=== PATIENT | female | born 1965 | race Caucasian/White ===

== ENCOUNTER → 2017-02-08 | Outpatient (CLI) | payer BC ==
--- NOTE | 2017-02-09 10:42 | MM ---
Reason for exam: screening (asymptomatic). Last mammogram was performed 1 year ago. History: Patient is postmenopausal and had first child at age 37. Family history of breast cancer in grandmother. Physical Findings: A clinical breast exam by your physician is recommended on an annual basis and results should be correlated with mammographic findings. MG Screening Mammo w CAD Bilateral CC and MLO view(s) were taken. Prior study comparison: February 08, 2016, bilateral MG screening mammo w CAD. March 13, 2014, bilateral MG screening mammo w CAD. There are scattered fibroglandular densities. No suspicious abnormality. No significant changes when compared with prior studies. ASSESSMENT: Negative, BI-RAD 1 RECOMMENDATION: Routine screening mammogram of both breasts in 1 year.
== END | disposition home or self-care (01) ==
LOC: RADMAMWWP 07:54
PROVIDERS: ATTEND Family Medicine
DX: Z12.31 Encounter for screening mammogram for malignant neoplasm of breast (principal)

== ENCOUNTER → 2018-07-13 | Outpatient (CLI) | payer BC ==
--- NOTE | 2018-07-16 14:00 | MM ---
Reason for exam: screening (asymptomatic). Last mammogram was performed 1 year and 5 months ago. History: Patient is postmenopausal and had first child at age 37. Family history of breast cancer in grandmother. Physical Findings: A clinical breast exam by your physician is recommended on an annual basis and results should be correlated with mammographic findings. MG 3D Screening Mammo W/Cad Bilateral CC and MLO view(s) were taken. Prior study comparison: February 08, 2017, bilateral MG screening mammo w CAD. February 08, 2016, bilateral MG screening mammo w CAD. There are scattered fibroglandular densities. No significant changes when compared with prior studies. ASSESSMENT: Benign, BI-RAD 2 RECOMMENDATION: Routine screening mammogram of both breasts in 1 year.
== END | disposition home or self-care (01) ==
LOC: RADMAMWWP 13:32
PROVIDERS: ATTEND Obstetrics & Gynecology
DX: Z12.31 Encounter for screening mammogram for malignant neoplasm of breast (principal)
CPT/HCPCS: 77063; 77067

== ENCOUNTER → 2018-10-03 | Outpatient (CLI) | payer BC ==
--- NOTE | 2018-10-03 11:57 | BD ---
EXAMINATION TYPE: Axial Bone Density DATE OF EXAM: 10/03/2018 COMPARISON: 04.27.2016 CLINICAL HISTORY: Disorder of bone, osteopenia Height: 60.5 Weight: 181.8 FRAX RISK QUESTIONS: Alcohol (3 or more units per day): no Family History (Parent hip fracture): no Glucocorticoids (More than 3mos): no (Ex: prednisone, prednisolone, methylprednisolone, dexamethasone, and hydrocortisone). History of Fracture in Adulthood: no Secondary Osteoporosis: 1. Type 1 Diabetes: no 2. Hyperthyroidism: no 3. Menopause before 45: yes 4. Malnutrition: no 5. Chronic liver disease: no Rheumatoid Arthritis: no Current Tobacco Use: no RISK FACTORS HISTORY OF: Family History of Osteoporosis: yes Active: yes Diet low in dairy products/other sources of calcium: yes Postmenopausal woman: age 38 Lost more than 2 inches in height since high school: no MEDICATIONS: blood pressure med, vit d Additional History: EXAM MEASUREMENTS: Bone mineral densitometry was performed using the American Board [employer] Addiction Medicine (ABAM) System. Bone mineral density as measured about the Lumbar spine is: ----- L1-L4(G/cm2): 1.010 T Score Values are as follows: ----- L2: -1.9 ----- L3: -1.4 ----- L4: -1.8 ----- L1-L4: -1.4 Bone mineral density has: increased 0.9 % since study of: 04.27.2016 Bone mineral density about the R hip (g/cm2): 0.742 Bone mineral density about the L hip (g/cm2): 0.754 T Score values are as follows: -----R Neck: -2.1 -----L Neck: -1.2 -----R Total: -2.0 -----L Total: -1.4 Bone mineral density has: increased 0.7 % since study of: 04.27.2016 IMPRESSION: Osteopenia (T Score between -2.5 and -1). There is slightly increased risk of fracture and the patient may be considered for treatment. Re-Screen 2-5 years. NOTE: T-SCORE=SD OF THE YOUNG ADULT MEAN.
== END | disposition home or self-care (01) ==
LOC: RADBDWWP 08:36
PROVIDERS: ATTEND Obstetrics & Gynecology
DX: M85.80 Other specified disorders of bone density and structure, unspecified site (principal)
CPT/HCPCS: 77080

== ENCOUNTER → 2019-05-02 | Outpatient (CLI) | payer BC ==
--- NOTE | 2019-05-02 16:04 | XR ---
Left knee and left fibula HISTORY: Left knee pain, left leg pain 3 views of the left knee and 2 views of the left leg Suprapatellar increased density is compatible joint effusion. Bone mineralization is reduced. There i s no evident fracture or dislocation. Alignment is maintained. Joint space loss is present especially in the medial compartment, there is marginal spurring tricompartmentally. IMPRESSION: Osteoarthritis, osteopenia, knee joint effusion
== END | disposition home or self-care (01) ==
LOC: RADXRYALE 14:10
PROVIDERS: ATTEND Physician Assistant
DX: M17.12 Unilateral primary osteoarthritis, left knee (principal); M85.80 Other specified disorders of bone density and structure, unspecified site

== ENCOUNTER 2020-04-14 09:07 | Day surgery (SDC) | payer BC ==
[2020-04-09 16:13] VITALS: BMI 34.0
[~2020-04-14 09:07] MED LIST: LACTATED RINGERS 1,000 ML IV SCH; LIDOCAINE 1% (10MG/ML) FOR IV START INTRADERMA PRN
[2020-04-14 09:44] VITALS: RESP 16; TEMP 97.1
[2020-04-14] MEDS ORDERED: PROPOFOL 10 MG/ML 20 ML VIAL IV ONE (10:21)
[2020-04-14] MEDS ORDERED: LIDOCAINE 1% INJ 10MG/ML (20 ML MDV) ONE (10:21)
--- NOTE | 2020-04-14 10:57 | P.PCN ---
Date of Procedure: 04/14/20 Description of Procedure: BRIEF HISTORY: Patient is a 55-year-old female presenting for outpatient colonoscopy for family history of colon cancer. She reports last colonoscopy 6 years ago. She does report a family history of colon cancer in her mother. No change in bowel habits or blood per rectum. PROCEDURE PERFORMED: Colonoscopy with polypectomy. PREOPERATIVE DIAGNOSIS: .Family history of colon cancer, patient reports last colonoscopy 6 years ago ESTIMATED BLOOD LOSS: Minimal. IV sedation per Anesthesia. PROCEDURE: After informed consent was obtained, the patient, was brought into the endoscopy unit. IV sedation was administered by Anesthesia under continuous monitoring. D igital rectal examination was normal. Initially the Olympus CF-190 flexible video colonoscope was then inserted in the rectum, gradually advanced into the cecum without any difficulty. Careful examination was performed as the scope was gradually being withdrawn. Ileocecal valve and the appendiceal orifice were visualized and appeared normal. Prep was excellent. Mucosa of the cecum, ascending colon, transverse colon, descending colon, sigmoid colon, and rectum appeared normal. Pedunculated 9 mm transverse colon polyp removed with hot snare polypectomy. 6 mm ascending colon polyp removed with cold snare polypectomy. 4 mm rectal polyp just proximal to the anal verge removed with hot snare polypectomy. A few scattered diverticula noted throughout the colon. Retroflexion was performed in the rectum and no lesions were seen. The patient tolerated the procedure well. IMPRESSION: Pedunculated transverse colon polyp removed with hot snare polypectomy. Small ascending colon polyp removed with cold snare polypectomy. Small rectal polyp removed with hot snare polypectomy. Mild pandiverticulosis. RECOMMENDATIONS: Findings of this examination were discussed with the patient and her family. Okay to resume diet. Okay to resume medications. Await pathology from polypectomies. Recommend repeat colonoscopy in 5 years for family history of colon cancer status post partial history of colon polyps pending pathology from polypectomies.
[2020-04-14 11:28] VITALS: BP 142/78; PULSE 77
== END 2020-04-14 12:00 | disposition home or self-care (01) ==
LOC: ORWHC2ENDO 09:07
PROVIDERS: ATTEND Internal Medicine
DX: Z12.11 Encounter for screening for malignant neoplasm of colon (principal); D12.3 Benign neoplasm of transverse colon; D12.2 Benign neoplasm of ascending colon; D37.5 Neoplasm of uncertain behavior of rectum; K57.30 Diverticulosis of large intestine without perforation or abscess without bleeding; E78.5 Hyperlipidemia, unspecified; Z80.0 Family history of malignant neoplasm of digestive organs; Z98.42 Cataract extraction status, left eye; Z98.41 Cataract extraction status, right eye; Z98.890 Other specified postprocedural states; Z79.899 Other long term (current) drug therapy
CPT/HCPCS: 88305; 45385; J2001; J2704

== ENCOUNTER → 2021-01-18 | Outpatient (CLI) | payer BC ==
--- NOTE | 2021-01-20 11:27 | MM ---
Reason for exam: screening (asymptomatic). Last mammogram was performed 2 years and 6 months ago. History: Patient is postmenopausal and had first child at age 37. Family history of breast cancer in grandmother. Took hormonal contraceptives for 6 months. Physical Findings: A clinical breast exam by your physician is recommended on an annual basis and results should be correlated with mammographic findings. MG Screening Mammo w CAD Bilateral CC and MLO view(s) were taken. Prior study comparison: July 13, 2018, bilateral MG 3d screening mammo w/cad. February 08, 2017, bilateral MG screening mammo w CAD. No significant changes when compared with prior studies. ASSESSMENT: Benign, BI-RAD 2 RECOMMENDATION: Routine screening mammogram of both breasts in 1 year.
== END | disposition home or self-care (01) ==
LOC: RADMAMWWP 15:16
PROVIDERS: ATTEND Obstetrics & Gynecology
DX: Z12.31 Encounter for screening mammogram for malignant neoplasm of breast (principal); Z78.0 Asymptomatic menopausal state; Z80.3 Family history of malignant neoplasm of breast
CPT/HCPCS: 77067

== ENCOUNTER → 2021-12-16 | Outpatient (CLI) | payer BC ==
--- NOTE | 2021-12-16 11:27 | US ---
EXAMINATION TYPE: US abdomen complete DATE OF EXAM: 12/16/2021 COMPARISON: NONE CLINICAL HISTORY: 56-year-old female R10.30 LOW ABD PAIN; R39.15 R82.90. Left flank pain. Technique: Multiple sonographic images of the abdomen are obtained. FINDINGS: EXAM MEASUREMENTS: Liver Length: 17.3 cm Gallbladder Wall: 0.5 cm CBD: 1.0 cm Spleen: 11.2 cm Right Kidney: 11.2 x 5.0 x 5.2 cm Left Kidney: 11.2 x 3.8 x 5.7 cm Pancreas: wnl Liver: wnl Gallbladder: wnl Evidence for sonographic Aranda's sign: no CBD: Dilated. No visualized intraluminal filling defect. Spleen: wnl Right Kidney: wnl Left Kidney: multiple shadowing stones seen, largest may measure up to 3.1 cm at the level of the re nal pelvis. Suggestion of mild caliectasis. Upper IVC: wnl Abd Aorta: wnl IMPRESSION: 1. Dilated bile duct up to 1 cm. Correlate with alkaline phosphatase and bilirubin levels to exclude early biliary obstruction. 2. Left-sided renal calculi. Largest may measure up to 3.1 cm at the level of the renal pelvis. Some degree of mild obstructive uropathy is difficult to exclude.
--- NOTE | 2021-12-16 11:38 | US ---
EXAMINATION TYPE: US pelvic complete DATE OF EXAM: 12/16/2021 COMPARISON: NONE CLINICAL HISTORY: 56-year-old female R10.30 LOW ABD PAIN; R39.15 R82.90. Increased in urination and h ematuria TECHNIQUE: Transabdominal sonographic images of the pelvis were acquired Date of LMP: 17 yrs ago FINDINGS: EXAM MEASUREMENTS: Uterus: 6.2 x 4.1 x 2.5 cm Endometrial Stripe: 0.4 cm Right Ovary: 1.6 x 1.3 x 1.5 cm Left Ovary: not seen 1. Uterus: Anteverted and otherwise wnl 2. Endometrium: wnl 3. Right Ovary: wnl 4. Left Ovary: not seen 5. Bilateral Adnexa: wnl 6. Posterior cul-de-sac: wnl IMPRESSION: Unable to visualize the left ovary. Otherwise, unremarkable transabdominal examination of the pelvis.
== END | disposition home or self-care (01) ==
LOC: RADUSWWP 07:24
PROVIDERS: ATTEND Family Medicine
DX: K83.8 Other specified diseases of biliary tract (principal); N20.0 Calculus of kidney; R39.15 Urgency of urination; R82.90 Unspecified abnormal findings in urine
CPT/HCPCS: 76700; 76856

== ENCOUNTER → 2022-01-19 | Outpatient (CLI) | payer BC ==
--- NOTE | 2022-01-20 07:25 | MM ---
Reason for Exam: Screening (asymptomatic). Last screening mammogram was performed 12 month(s) ago. Patient History: Menarche at age 11. First Full-Term at age 37. Late child-bearing (after 30). Postmenopausal. Patient has history of breast feeding. Hormonal Contraceptives for 6 months. Maternal grandmother had breast cancer at or over age 50. Risk Values: Bekah 5 year model risk: 1.8%. NCI Lifetime model risk: 10.5%. Prior Study Comparison: 03/13/2014 Bilateral Screening Mammogram, [facility]. 02/08/2016 Bilateral Screening Mammogram, [facility]. 02/08/2017 Bilateral Screening Mammogram, [facility]. 07/13/2018 Bilateral Screening Mammogram, [facility]. 01/18/2021 Bilateral Screening Mammogram, [facility]. Tissue Density: There are scattered fibroglandular densities. Findings: Analyzed By CAD. Benign-appearing bilateral axillary lymph nodes redemonstrated. There is no suspicious new group of microcalcifications or new suspicious mass in either breast. Overall Assessment: Negative, BI-RAD 1 Management: Screening Mammogram of both breasts in 1 year. A clinical breast exam by your physician is recommended on an annual basis and results should be correlated with mammographic findings. Electronically signed and approved by: Aftab Hunt M.D.
== END | disposition home or self-care (01) ==
LOC: RADMAMWWP 08:17
PROVIDERS: ATTEND Family Medicine
DX: Z12.31 Encounter for screening mammogram for malignant neoplasm of breast (principal); Z78.0 Asymptomatic menopausal state; Z80.3 Family history of malignant neoplasm of breast
CPT/HCPCS: 77063; 77067

== ENCOUNTER → 2022-01-20 | Outpatient (CLI) | payer BC ==
--- NOTE | 2022-01-20 17:42 | CT ---
EXAMINATION TYPE: CT abdomen pelvis wo con CT DLP: 1029 mGycm, Automated exposure control for dose reduction was used. DATE OF EXAM: 01/20/2022 5:07 PM COMPARISON: None CLINICAL INDICATION:Female, 56 years old with history of R31.1 HEMATURIA; Left flank pain TECHNIQUE: Axial CT of the abdomen and pelvis. Sagittal and coronal reformats were created on a [employer] workstation. Contrast used: None Oral contrast used: without Oral Contrast FINDINGS: LOWER CHEST: Unremarkable ABDOMEN LIVER: Unremarkable GALLBLADDER AND BILE DUCTS: Unremarkable. PANCREAS: Unremarkable. SPLEEN: Unremarkable. ADRENAL GLANDS: Unremarkable. KIDNEYS AND URETERS: No evidence of right-sided hydronephrosis or renal calculus. The left kidney demonstrates large calculus in the renal pelvis resulting in mild hydronephrosis. Robert al pelvis large calculus measures up to 19 mm. Additional calculi also present in the calyces/pelvis which may be obstructing. PELVIS BLADDER: Unremarkable REPRODUCTIVE: Unremarkable. ABDOMEN & PELVIS STOMACH AND BOWEL: No evidence of bowel obstruction. Scattered clonic diverticula are present in the sigmoid colon. PERITONEUM: No evidence of pneumoperitoneum or free fluid. VASCULATURE: No evidence of aortic aneurysm. MUSCULOSKELETAL: No acute osseous abnormalities, mild multilevel disc degeneration changes. LYMPH NODES: No gross evidence for lymphadenopathy. SOFT TISSUE/ABDOMINAL WALL: Unremarkable IMPRESSION: 1. Mild left hydronephrosis secondary obstructing 19 mm calculus in the left renal pelvis. 2. Colonic diverticulosis.
== END | disposition home or self-care (01) ==
LOC: RADCTMAIN 16:45
PROVIDERS: ATTEND Urology
DX: N13.2 Hydronephrosis with renal and ureteral calculous obstruction (principal); K57.30 Diverticulosis of large intestine without perforation or abscess without bleeding
CPT/HCPCS: 74176

== ENCOUNTER → 2022-02-14 | Outpatient (CLI) | payer BC ==
--- NOTE | 2022-02-14 17:11 | BD ---
EXAMINATION TYPE: Axial Bone Density DATE OF EXAM: 02/14/2022 COMPARISON: 10.03.2018 STUDY UNAVAILABLE, TRENDED TO 04.27.2016 STUDY CLINICAL HISTORY: 56 years year old Female. ICD-10 CODE: Z78.0 POST MENOPAUSAL M85.88 Osteopenia Height: 59.5 Weight: 181 FRAX RISK QUESTIONS: Secondary Osteoporosis: YES 3. Menopause before 45: YES RISK FACTORS HISTORY OF: Active: YES Postmenopausal woman: YES, AT 38 YRS OLD Hyperparathyroidism: NO Adrenal Insufficiency: NO MEDICATIONS: Additional Medications: BP MEDS, VIT D, STATIN FOR CHOLESTEROL, MULTIVITAMIN WITH CALCIUM Additional History: HYPERTENSION, CHOLESTEROL, EXAM MEASUREMENTS: Bone mineral densitometry was performed using the [employer] System. Bone mineral density as measured about the Lumbar spine is: ----- L1-L4(G/cm2): 1.003 T Score Values are as follows: ----- L1: -0.7 ----- L2: -2.0 ----- L3: -1.5 ----- L4: -1.7 ----- L1-L4: -1.5 Bone mineral density has: Increased 0.4% SINCE: 04.27.2016 Bone mineral density about the R hip (g/cm2): 0.784 Bone mineral density about the L hip (g/cm2): 0.772 T Score values are as follows: -----R Neck: -2.5 -----L Neck: -2.4 -----R Total: -1.8 -----L Total: -1.9 Bone mineral density has: Decreased -7.2% SINCE: 04.27.2016 FRAX%s: The graph provided illustrates a 10.4%nce for a major osteoporotic fx and a 1.9%ance for the hips probability for fx in 10 years time. IMPRESSION: Osteoporosis (T Score less than -2.5). There is increased fracture risk and therapy is usually indicated based on age. Re-Screen 1-2 years. NOTE: T-SCORE=SD OF THE YOUNG ADULT MEAN.
== END | disposition home or self-care (01) ==
LOC: RADBDWWP 07:47
PROVIDERS: ATTEND Obstetrics & Gynecology
DX: M81.0 Age-related osteoporosis without current pathological fracture (principal)
CPT/HCPCS: 77080

== ENCOUNTER 2022-02-19 09:47 | Emergency (ER) | payer BC ==
[2022-02-19 09:52] VITALS: TEMP 97.6
[2022-02-19] MEDS ORDERED: diphenhydrAMINE 50 MG/ML 1 ML VIAL IVP STA (10:08)
[2022-02-19] MEDS ORDERED: SODIUM CHLORIDE 0.9% 1,000 ML IV ONE (10:08)
[2022-02-19] MEDS ORDERED: ACETAMINOPHEN TAB 500 MG TAB PO STA (10:08)
[2022-02-19] MEDS ORDERED: METOCLOPRAMIDE 5 MG/ML 2 ML VIAL IVP STA (10:08)
--- NOTE | 2022-02-19 10:17 | ED ---
General Adult HPI - General Chief complaint: Headache Stated complaint: Headache/Neck Pain Time Seen by Provider: 02/19/22 09:50 Source: patient, RN notes reviewed, old records reviewed Mode of arrival: ambulatory Limitations: no limitations - History of Present Illness Initial comments: 48-year-old female presenting for evaluation of headache or patient has had a headache for the past several days. This was gradual in onset and has been constant. She was started seen at urgent care and sent to the emergency department for evaluation. She denies photophobia. Denies fever. She states the headache is throughout her entire head starting in her neck and moving across the entire frontal region. Patient states this is worse with movement. She denies any injury. She states she does have previous headache history but states this is more severe in nature. No focal numbness or weakness. - Related Data Home Medications Medication Instructions Recorded Confirmed Atorvastatin Calcium [Lipitor] 40 mg PO HS 04/09/20 04/09/20 Cholecalciferol [Vitamin D3 (25 5,000 unit PO HS 04/09/20 04/09/20 Mcg = 1000 Iu)] Cyanocobalamin (Vitamin B-12) 2,500 mcg PO HS 04/09/20 04/09/20 [Vitamin B-12] Multivitamins, Thera [Multivitamin 2 tab PO HS 04/09/20 04/09/20 (formulary)] Vitamin C/Biotin [Hair, Skin and 1 tab PO HS 04/09/20 04/09/20 Nails] Allergies Allergy/AdvReac Type Severity Reaction Status Date / Time No Known Allergies Allergy Verified 02/19/22 09:52 Review of Systems ROS Statement: Those systems with pertinent positive or pertinent negative responses have been documented in the HPI. ROS Other: All systems not noted in ROS Statement are negative. Past Medical History Past Medical History: Hyperlipidemia Additional Past Medical History / Comment(s): feet picky all the time, Neuropathy History of Any Multi-Drug Resistant Organisms: None Reported Additional Past Surgical History / Comment(s): 2000 LAPAROSCOPIC. EYE SURGERY- CATARACT ANATOLY. EYES WITH SPECIAL LENS INSERTED TO IMPROVE VISION Past Anesthesia/Blood Transfusion Reactions: No Reported Reaction Past Psychological History: Anxiety Smoking Status: Never smoker Past Alcohol Use History: None Reported Past Drug Use History: None Reported - Past Family History Mother Family Medical History: Cancer Additional Family Medical History / Comment(s): colon cancer General Exam Limitations: no limitations General appearance: alert, in no apparent distress Head exam: Present: atraumatic, normocephalic Eye exam: Present: normal appearance, PERRL ENT exam: Present: normal exam Neck exam: Present: normal inspection, tenderness, other (Bilateral paraspinal and trapezius spasm) Respiratory exam: Present: normal lung sounds bilaterally. Absent: respiratory distress, wheezes Cardiovascular Exam: Present: regular rate, normal rhythm GI/Abdominal exam: Present: soft. Absent: distended, tenderness Extremities exam: Present: normal inspection, normal capillary refill. Absent: pedal edema Neurological exam: Present: alert, oriented X3, CN II-XII intact. Absent: motor sensory deficit Psychiatric exam: Present: normal affect, normal mood Skin exam: Present: warm, dry, intact. Absent: cyanosis, diaphoretic Course Vital Signs 02/19/22 02/19/22 09:50 12:40 Temperature 97.6 F Pulse Rate 64 90 Respiratory 20 18 Rate Blood Pressure 166/82 148/91 O2 Sat by Pulse 99 99 Oximetry Medical Decision Making - Medical Decision Making 56-year-old female presenting for evaluation of headache, gradual headache. Patient well-appearing with a nonfocal neurologic exam, no ataxia. She was sent for imaging. Given the duration of symptoms I did perform both CT of the brain without contrast and CT angiography. These are both negative. Patient had relatively normal laboratory testing with a mild leukocytosis of uncertain etiol ogy. She was feeling somewhat better after medication. Headache not completely resolved but patient was able to get some rest. She will follow-up with her primary care physician and her neurologist. - Lab Data Result diagrams: 02/19/22 10:24 02/19/22 10:24 Lab Results 02/19/22 02/19/22 02/19/22 Range/Units 10:24 10: 10:24 WBC 12.5 H (3.8-10.6) k/uL RBC 4.50 (3.80-5.40) m/uL Hgb 13.5 (11.4-16.0) gm/dL Hct 40.5 (34.0-46.0) % MCV 90.1 (80.0-100.0) fL MCH 30.0 (25.0-35.0) pg MCHC 33.3 (31.0-37.0) g/dL RDW 12.4 (11.5-15.5) % Plt Count 230 (150-450) k/uL MPV 9.0 Neutrophils % 66 % Lymphocytes % 23 % Monocytes % 6 % Eosinophils % 2 % Basophils % 0 % Neutrophils # 8.2 H (1.3-7.7) k/uL Lymphocytes # 2.9 (1.0-4.8) k/uL Monocytes # 0.8 (0-1.0) k/uL Eosinophils # 0.3 (0-0.7) k/uL Basophils # 0.1 (0-0.2) k/uL PT 10.5 (9.0-12.0) sec INR 1.0 (<1.2) APTT 23.3 (22.0-30.0) sec Sodium 138 (137-145) mmol/L Potassium 4.7 (3.5-5.1) mmol/L Chloride 101 (98-107) mmol/L Carbon Dioxide 25 (22-30) mmol/L Anion Gap 12 mmol/L BUN 18 H (7-17) mg/dL Creatinine 0.75 (0.52-1.04) mg/dL Est GFR (CKD-EPI)AfAm >90 (>60 ml/min/1.73 sqM) Est GFR (CKD-EPI)NonAf 88 (>60 ml/min/1.73 sqM) Glucose 102 H (74-99) mg/dL Calcium 9.6 (8.4-10.2) mg/dL Total Bilirubin 0.6 (0.2-1.3) mg/dL AST 20 (14-36) U/L ALT 22 (4-34) U/L Alkaline Phosphatase 124 (38-126) U/L Total Protein 7.9 (6.3-8.2) g/dL Albumin 4.7 (3.5-5.0) g/dL Disposition Clinical Impression: Headache Disposition: HOME SELF-CARE Condition: Good Instructions (If sedation given, give patient instructions): Acute Headache (ED) Additional Instructions: Please follow up with her neurologist, return with worsening or changing symptoms. Is patient prescribed a controlled substance at d/c from ED?: No Referrals: Pancho Mai DO [Primary Care Provider] - 1-2 days Time of Disposition: 13:13
[2022-02-19 11:11] LABS: Basophils # (A) 0.1 k/uL (0-0.2); Basophils % (A) 0 %; Eosinophils # (A) 0.3 k/uL (0-0.7); Eosinophils % (A) 2 %; HCT 40.5 % (34.0-46.0); HGB 13.5 gm/dL (11.4-16.0); Lymphocytes # (A) 2.9 k/uL (1.0-4.8); Lymphocytes % (A) 23 %; MCHC 33.3 g/dL (31.0-37.0); MCV 90.1 fL (80.0-100.0); Monocytes # (A) 0.8 k/uL (0-1.0); Monocytes % (A) 6 %; Neutrophils # (A) 8.2 k/uL (1.3-7.7); Neutrophils % (A) 66 %; Platelet Count 230 k/uL (150-450); RDW 12.4 % (11.5-15.5); WBC 12.5 k/uL (3.8-10.6)
[2022-02-19 11:24] LABS: ALT 22 U/L (4-34); AST 20 U/L (14-36); African American GFR (CKD) >90 (>60 ml/min/1.73 sqM); Albumin 4.7 g/dL (3.5-5.0); Alkaline Phosphatase 124 U/L (38-126); Anion Gap 12 mmol/L; Blood Urea Nitrogen 18 mg/dL (7-17); Calcium 9.6 mg/dL (8.4-10.2); Carbon Dioxide 25 mmol/L (22-30); Chloride 101 mmol/L (98-107); Glucose 102 mg/dL (74-99); Non-African American GFR(CKD) 88 (>60 ml/min/1.73 sqM); Potassium 4.7 mmol/L (3.5-5.1); Sodium 138 mmol/L (137-145); Total Bilirubin 0.6 mg/dL (0.2-1.3); Total Protein 7.9 g/dL (6.3-8.2)
[2022-02-19 11:32] LABS: Partial Thromboplastin Time 23.3 sec (22.0-30.0); Prothrombin Time 10.5 sec (9.0-12.0)
[2022-02-19 12:40] VITALS: RESP 18
--- NOTE | 2022-02-19 12:42 | CT ---
EXAMINATION TYPE: CT brain cspine wo con CT DLP: 1364.6 mGycm, Automated exposure control for dose reduction was used. DATE OF EXAM: 02/19/2022 12:28 PM COMPARISON: None.. CLINICAL INDICATION:Female, 56 years old with history of severe MIRANDA; Headache/neck pain TECHNIQUE: Brain: Multiple axial CT images of the brain were obtained without IV contrast. Cspine: Axial CT images from the skull base to the inferior aspect of T2 we obtained without intraven ous contrast. Coronal and sagittal reformatted images were also reviewed. FINDINGS: Brain: Extra-axial spaces: No abnormal extra-axial fluid collections. Ventricular system: Within normal limits Cerebral parenchyma: No acute intraparenchymal hemorrhage or mass effect. The ventura-white junction is well differentiated. Cerebellum: Unremarkable. Mass effect: No evidence of midline shift. Intracranial vasculature: unremarkable Soft tissues: Normal. Calvarium/osseous structures: No depressed skull fracture. Paranasal sinuses and mastoid air cells: Clear. Visualized orbits: Bilaterally aphakia Cervical spine: Fracture: None. Osseous structures: Multilevel degenerative disc disease changes with endplate spurring and disc oste ophyte complex's. Vertebral alignment: Within normal limits. Spinal canal/Neural Foramina: No evidence of significant spinal canal narrowing. No evidence for sign ificant neural foraminal stenosis. Neck soft tissues: Prevertebral soft tissues are within normal limits. Other: The airway is patent. The lung apices are clear. IMPRESSION: 1. No acute intracranial process 2. No evidence of cervical spine fracture. 3. Mild multilevel degenerative disc disease.
--- NOTE | 2022-02-19 13:01 | CT ---
EXAMINATION TYPE: CT angio head neck CT DLP: 583.2 mGycm, Automated exposure control for dose reduction was used. DATE OF EXAM: 02/19/2022 12:29 PM COMPARISON: 02/19/2022. CLINICAL INDICATION:Female, 56 years old with history of Severe MIRANDA, Headache/neck pain TECHNIQUE: Axially acquired helical CT angiogram of the head and neck was obtained with contrast. Axi al images are supplemented with 3D reconstructions which were [facility] NASCET criteria used. Contrast used:65 mL of Isovue 370 with IV Contrast, Oral contrast used: None. FINDINGS: CTA HEAD: No evidence of acute intracranial hemorrhage, mass effect, or midline shift. The ventricles, sulci, a nd cisterns are unremarkable. The visualized portions of the internal carotid arteries, middle cerebral arteries, anterior cerebral arteries, and posterior cerebral arteries are patent. The basilar and vertebral arteries are patent. CTA NECK: Right Carotid System: The common carotid artery and external carotid artery are patent. The carotid bifurcation demonstrate s no evidence of hemodynamically significant stenosis. The remaining portions of the internal carotid artery demonstrate normal size without significant narrowing. Left Carotid System: The common carotid artery and external carotid artery are patent. The carotid bifurcation demonstrate s no evidence of hemodynamically significant stenosis. The remaining portions of the internal carotid artery demonstrate normal size without significant narrowing. Vertebral arteries are patent without evidence hemodynamically significant stenosis. There is a three-vessel aortic arch. The origins of the great vessels are patent. No evidence of hemo dynamically significant stenosis. IMPRESSION: 1. No evidence of dissection of the cervical internal carotid arteries or vertebral arteries or any e vidence of significant stenosis at the carotid bifurcations. 2. No evidence of intracranial high-grade stenosis or intracranial aneurysm.
[2022-02-19] MEDS ORDERED: KETOROLAC 15 MG/ML 1 ML VIAL IVP STA (13:11)
[2022-02-19 13:55] VITALS: BP 148/89; PULSE 92
== END 2022-02-19 14:03 | disposition home or self-care (01) ==
LOC: EC 09:47
DX: R51.9 Headache, unspecified (principal); E78.5 Hyperlipidemia, unspecified; Z79.899 Other long term (current) drug therapy
CPT/HCPCS: 96361 ×2; 96374 ×2; 96375 ×2; 99284 ×2; 36415; 80053; 85025; 85610; 85730; 72125; 70496; 70450; 70498; J1200; J2765; J3360; J1885; Q9967

== ENCOUNTER → 2022-02-21 | Outpatient (CLI) | payer BC ==
[2022-02-21 18:18] LABS: African American GFR (CKD) 94.2 (60.0-200.0); Albumin 4.5 g/dL (3.8-4.9); Albumin/Globulin Ratio 1.32 (1.60-3.17); Anion Gap 9.6 mmol/L (10.00-18.00); BUN/Creat Ratio 17.13 Ratio (12.00-20.00); Blood Urea Nitrogen 13.7 mg/dL (9.0-27.0); Calcium 9.7 mg/dL (8.7-10.3); Carbon Dioxide 25.4 mmol/L (20.0-27.5); Globulin 3.4 g/dL (1.6-3.3); Non-African American GFR(CKD) 81.3 (60.0-200.0); Potassium 4.5 mmol/L (3.5-5.5); Total Bilirubin 0.3 mg/dL (0.30-1.20); Total Protein 7.9 g/dL (6.2-8.2)
[2022-02-21 18:22] LABS: Basophils # (A) 0.07 X 10*3/uL (0.00-0.10); Basophils % (A) 0.6 %; Eosinophils # (A) 0.29 X 10*3/uL (0.04-0.35); Eosinophils % (A) 2.6 %; HCT 39.4 % (37.2-46.3); HGB 12.8 g/dL (12.0-15.0); Immature Grans, Automated 0.4 %; Lymphocytes # (A) 3.11 X 10*3/uL (0.90-5.00); Lymphocytes % (A) 27.8 %; MCH 30.3 pg (27.0-32.0); MCHC 32.5 g/dL (32.0-37.0); MCV 93.1 fL (80.0-97.0); Mean Platelet Volume 12.3 fL (9.5-12.2); Monocytes # (A) 0.95 X 10*3/uL (0.20-1.00); Monocytes % (A) 8.5 %; NRBC Per 100 WBC 0 /100 WBCS (0.0-0.0); Neutrophils # (A) 6.72 X 10*3/uL (1.80-7.70); Neutrophils % (A) 60.1 %; Platelet Count 255 X 10*3/uL (140-440); RBC 4.23 X 10*6/uL (4.10-5.20); RDW 12.7 % (11.5-14.5); WBC 11.19 X 10*3/uL (4.50-10.00)
[2022-02-21 18:27] LABS: Appearance,Urine Clear (Clear); Bilirubin,Urine Negative (Negative); Blood,Urine Trace (Negative); Color,Urine Yellow (Yellow); Ketones,Urine Negative (Negative); Nitrite,Urine Negative (Negative); PH, Urine 5.5 (5.0-8.0); Specific Gravity,Urine 1.015 (1.001-1.030); Urobilinogen,Urine 0.2 (0.2,1.0)
[2022-02-21 18:36] LABS: Bacteria,Urine None Seen /HPF (None Seen)
== END | disposition home or self-care (01) ==
LOC: LABPAT 10:32
PROVIDERS: ATTEND Urology
DX: Z01.812 Encounter for preprocedural laboratory examination (principal); C67.9 Malignant neoplasm of bladder, unspecified; R31.29 Other microscopic hematuria
CPT/HCPCS: 80053; 81001; 85025; 87086

== ENCOUNTER 2022-03-04 10:00 | Day surgery (SDC) | payer BC ==
[2022-02-28 14:02] VITALS: BMI 33.0
--- NOTE | 2022-03-03 19:18 | P.GSHP ---
History of Present Illness H&P Date: 03/03/22 57 yo female with large left renal calculi in the left renal pelvis and llp who comes for a left pcnl.. Due to the location and the risks of damage to the kidney we will proceed with this procedure. Alternatives have been discussed. - Constitutional Constitutional: Denies chills, Denies fever - EENT Eyes: denies blurred vision, denies pain Ears, nose, mouth and throat: Denies headache, Denies sore throat - Cardiovascular Cardiovascular: Denies chest pain, Denies shortness of breath - Respiratory Respiratory: Denies cough, Denies 7 - Gastrointestinal Gastrointestinal: Denies abdominal pain, Denies diarrhea, Denies nausea, Denies vomiting - Genitourinary (Female) Genitourinary: Denies dysuria, Denies hematuria - Genitourinary (Male) Genitourinary: Denies dysuria, Denies hematuria - Musculoskeletal Musculoskeletal: Denies myalgias - Integumentary Integumentary: Denies pruritus, Denies rash - Neurological Neurological: Denies numbness, Denies weakness - Psychiatric Psychiatric: Denies anxiety, Denies depression - Endocrine Endocrine: Denies fatigue, Denies weight change Past Medical History Past Medical History: Hyperlipidemia, Hypertension Additional Past Medical History / Comment(s): NUMBNESS AND TINGLING BILATERAL FEET History of Any Multi-Drug Resistant Organisms: None Reported Additional Past Surgical History / Comment(s): EXPLORATORY LAPAROSCOPY. EYE SURGERY-CATARACT ANATOLY. EYES WITH SPECIAL LENS INSERTED TO IMPROVE VISION Past Anesthesia/Blood Transfusion Reactions: No Reported Reaction Smoking Status: Never smoker - Past Family History Mother Family Medical History: Cancer Additional Family Medical History / Comment(s): colon cancer Medications and Allergies Home Medications Medication Instructions Recorded Confirmed Type Aspirin [Adult Low Dose Aspirin EC] 81 mg PO DAILY 02/28/22 02/28/22 History Losartan Potassium 50 mg PO QAM 02/28/22 02/28/22 History Nortriptyline HCl [Pamelor] 25 mg PO HS 02/28/22 02/28/22 History Rosuvastatin Calcium 40 mg PO HS 02/28/22 02/28/22 History Allergies Allergy/AdvReac Type Severity Reaction Status Date / Time No Known Allergies Allergy Verified 02/28/22 13:02 Surgical - Exam - General well developed, well nourished, no distress - Eyes normal ocular movement, no icteric - ENT no hearing loss, no congestion - Neck no masses, trachea midline - Respiratory normal respiratory effort, clear to auscultation - Abdomen Abdomen: soft, non tender, no guarding, no rigid, no rebound - Integumentary no rash, no abnormal pigmentation - Neurologic no disoriented, no combative - Psychiatric oriented to time, oriented to person, oriented to place, speech is normal, memory intact Results - Imaging CT scan - abdomen: report reviewed, image reviewed CT scan - pelvis: report reviewed, image reviewed Assessment and Plan Assessment: Impression: left renal stones, large,>3cm Plan: pcnl left
[~2022-03-04 10:00] MED LIST changes: +DEXAMETHASONE SOD PHOSPHATE 4 MG/ML 1 ML VIAL IV ONE; -LIDOCAINE 1% (10MG/ML) FOR IV START INTRADERMA PRN; +MIDAZOLAM 2 MG/2 ML VIAL IV PRN; +ONDANSETRON 4 MG/2 ML VIAL IVP ONE
--- NOTE | 2022-03-04 10:31 | XR ---
EXAMINATION TYPE: XR KUB DATE OF EXAM: 03/04/2022 Comparison: None Clinical History: 57-year-old female preoperative exam kidney stones, EVAL STONE Findings: Large left-sided renal calculi. Approximately 3 calculi are noted measuring 2.3 cm, 1.6 cm, and 0.5 c m. There is a 6 mm calcification the left-sided pelvis. That may correspond to distal ureteral calcul us. Impression: Multiple left-sided renal calculi measuring up to 2.3 cm. Possible 6 mm stone distal left ureter.
[2022-03-04] MEDS: SCOPOLAMINE 1 MG/72 HR PATCH TRANSDERM ONE ×2 (10:37→16:09)
[2022-03-04] MEDS ORDERED: MIDAZOLAM 2 MG/2 ML VIAL IVP ONE (11:20)
[2022-03-04] MEDS ORDERED: SUCCINYLCHOLINE CHLORIDE 200 MG/10 ML VIAL IV ONE (11:57)
[2022-03-04] MEDS ORDERED: GLYCOPYRROLATE 0.2 MG/ML 2 ML VIAL ONE (11:57)
[2022-03-04] MEDS ORDERED: PROPOFOL 10 MG/ML 20 ML VIAL IV ONE (11:57)
[2022-03-04] MEDS ORDERED: ROCURONIUM 10 MG/ML (5 ML VIAL) IV ONE (11:57)
[2022-03-04] MEDS ORDERED: NEOSTIGMINE 1 MG/ML 10 ML VIAL ONE (11:57)
[2022-03-04] MEDS ORDERED: LIDOCAINE 2% INJ 20 MG/ML (2 ML VIAL) ONE (11:57)
[2022-03-04] MEDS ORDERED: fentaNYL (PF) 50 MCG/ML 2 ML AMP ONE (11:57)
[2022-03-04] MEDS ORDERED: IOPAMIDOL-370 50ML BTL MISCELLANE ONE (12:35)
[2022-03-04] MEDS ORDERED: ONDANSETRON 4 MG/2 ML VIAL IVP PRN (14:00)
[2022-03-04] MEDS ORDERED: MAG HYDROX/AL HYDROX/SIMETH 30 ML CUP PO PRN (14:00)
[2022-03-04] MEDS ORDERED: ACETAMINOPHEN TAB 325 MG TAB PO PRN (14:00)
[2022-03-04] MEDS ORDERED: NALOXONE 0.4 MG/ML 1 ML VIAL IV PRN (14:02)
[2022-03-04] MEDS ORDERED: HYDROmorphone PCA 10 MG/50 ML BAG IV PRN (14:02)
--- NOTE | 2022-03-04 14:06 | P.OP ---
Date of Procedure: 03/04/22 Preoperative Diagnosis: Left renal stones large, greater than 3 cm Postoperative Diagnosis: Same Procedure(s) Performed: Cystoscopy, placement of ureteral catheter left, percutaneous nephrostomy (Dr. Cherry), percutaneous nephrostolithotomy at ultrasound, placement of 10 J nephrostomy Anesthesia: SHANELLE Surgeon: Matt Johnson Estimated Blood Loss (ml): 200 Pathology: other (Stone) Indications for Procedure: Patient is 57. She has a history of stones. She is to very large stones in the left kidney greater than 3 cm in total diameter. She comes for percutaneous nephrostolithotomy Description of Procedure: The patient is brought to the operating suite. She is given general anesthesia on the transport gurney. She's placed in a frog position with a sterile prep and drape. Cystoscopy a Foroblique lens identifies a left ureteral orifice which is intubated with a 5-German occluding balloon catheter passed up into the renal pelvis. It is secured to a 16-German Parmar. The patient's placed in a prone position to care to airways and extremities. Dr. Cherry of radiology performed percutaneous access to the left lower pole calyx. I dilate the tract to 30-German. Introduced the working sheath into the kidney. I remove clot and identify the 1.5 cm left renal stone pelvic stone. It is broken with ultrasound and the larger pieces grasped and removed. I then identify the 2.5 cm upper pole stone and break it back down in the renal pelvis. I tediously break this into smaller fragments and remove them. I then looked throughout the collecting system with the flexible scope and basket smaller fragments. I looked down the ureter and see no remaining fragments. There no remaining fragments on fluoroscopy. A 10 J nephrostomy tubes placed. The working sheath is removed. The patient is awakened and returned recovery room good condition. Blood loss is approximately 200 mL.
[2022-03-04] MEDS: HYDROmorphone 0.5 MG/0.5 ML SYRINGE IVP PRN ×3 (14:10→15:48)
--- NOTE | 2022-03-04 15:22 | FL ---
EXAMINATION TYPE: FL Perc Nephrostomy New Access DATE OF EXAM: 03/04/2022 COMPARISON: NONE HISTORY: Hydronephrosis, ureteral obstruction with staghorn calculus. PROCEDURE: Maximal barrier technique was utilized, hand hygiene obtained with soap and water and alcohol-based h and rub. The skin overlying the left kidney was localized using fluoroscopy and the overlying skin p repped and draped. Skin geno was made with a scalpel. Access was gained under fluoroscopy, following placement of a ureteral occlusion balloon by the referring clinician and instillation of air in the renal collecting system with a 21-gauge needle to posterior left kidney. A suitable posterior calyx was chosen at the lower pole. A 0.018 inch wire was advanced. The access site was dilated, access site was upsized, safety wire deployed and subsequently a sheath was advanced into the renal pelvis f ollowing dilation with balloon along the tract. The patient underwent nephrolithotomy by the referfederico heredia clinician. The patient remained in stable condition without complication. The patient was discha rged to observation in the care of anesthesia. 2 minutes 10 seconds fluoroscopy time, 7 intraoperative C-arm images document the procedure IMPRESSION: STATUS POST NEPHROSTOMY PLACEMENT FOR NEPHROLITHOTOMY WITH FLUOROSCOPIC GUIDANCE. THIS PROCEDURE PER FORMED BY THE UNDERSIGNED.
[2022-03-04] MEDS ORDERED: ONDANSETRON 4 MG/2 ML VIAL IVP ONE (15:49)
[2022-03-04] MEDS: DEXTROSE 5%-0.45% NACL 1,000 ML IV SCH (16:34)
[2022-03-04] MEDS ORDERED: NORTRIPTYLINE 25 MG CAP PO SCH (21:00)
[2022-03-05] MEDS: DEXTROSE 5%-0.45% NACL 1,000 ML IV SCH (01:12)
[2022-03-05 05:42] VITALS: TEMP 97.6
[2022-03-05 07:57] VITALS: BP 120/76; PULSE 111; RESP 14
[2022-03-05] MEDS ORDERED: LOSARTAN 50 MG TAB PO SCH (09:00)
--- NOTE | 2022-03-05 10:25 | P.DS ---
Providers Date of admission: 03/04/2022 Attending physician: Matt Johnson Primary care physician: Pancho Copley Hospital Course: patient is 57. She had a percutaneous nephrostolithotomy 03/04/2022 for a large left renal calculus. She underwent this without difficulty. Postoperatively she did well. Her urine is cleared nicely. Her pain is under control. She'll be discharged home today. Her Parmar catheter and IV will be removed. She'll go home with the nephrostomy tube. She's given a prescription of [place]. She'll follow-up in the office for nephrostomy tube removal. Her condition is good. Patient Condition at Discharge: Good Plan - Discharge Summary Discharge Rx Participant: No New Discharge Prescriptions: New HYDROcodone/APAP 5-325MG [[place] 5-325] 1 tab PO Q4HR PRN #10 tab PRN Reason: Pain No Action Nortriptyline HCl [Pamelor] 25 mg PO HS Rosuvastatin Calcium 40 mg PO HS Losartan Potassium 50 mg PO QAM Aspirin [Adult Low Dose Aspirin EC] 81 mg PO DAILY Discharge Medication List Aspirin [Adult Low Dose Aspirin EC] 81 mg PO DAILY 02/28/22 [History] Losartan Potassium 50 mg PO QAM 02/28/22 [History] Nortriptyline HCl [Pamelor] 25 mg PO HS 02/28/22 [History] Rosuvastatin Calcium 40 mg PO HS 02/28/22 [History] HYDROcodone/APAP 5-325MG [[place] 5-325] 1 tab PO Q4HR PRN #10 tab 03/05/22 [Rx] Follow up Appointment(s)/Referral(s): Matt Johnson MD [STAFF PHYSICIAN] - 03/10/22 Discharge Disposition: HOME SELF-CARE
== END 2022-03-05 12:30 | disposition home or self-care (01) ==
LOC: OR 10:00 → 5NMEDONC 14:06 → 4FBP 15:32 → OR 03-05 12:30
PROVIDERS: ATTEND Urology
DX: N20.0 Calculus of kidney (principal); E78.5 Hyperlipidemia, unspecified; I10 Essential (primary) hypertension; Z98.41 Cataract extraction status, right eye; Z98.42 Cataract extraction status, left eye; Z80.0 Family history of malignant neoplasm of digestive organs; Z79.82 Long term (current) use of aspirin; Z79.899 Other long term (current) drug therapy
CPT/HCPCS: 86900; 86901; 86850; 82365; 50432; 74018; 50081; C1769 ×3; C2628; C1894; C1729; J2250; J1100; J0690; J2405; J1170 ×2; Q9967

== ENCOUNTER → 2023-02-01 | Outpatient (CLI) | payer BC ==
--- NOTE | 2023-02-01 12:23 | FL ---
Exam Date: 02/01/2023 12:12 PM. Modified barium swallow for dysphagia. Consistencies administered: Various consistency of barium. Fluoro time: 51 seconds No images were sent to PACS. Please see speech pathology report. DAP: Not reported by machine [email or web address]
== END | disposition home or self-care (01) ==
LOC: RADFLMAIN 11:22
PROVIDERS: ATTEND Family Medicine
DX: R13.10 Dysphagia, unspecified (principal)
CPT/HCPCS: 74230

== ENCOUNTER → 2024-02-21 | Outpatient (CLI) | payer BC ==
--- NOTE | 2024-02-21 10:18 | BD ---
EXAMINATION TYPE: Axial Bone Density DATE OF EXAM: 02/21/2024 CLINICAL HISTORY: 58 years old Female. ICD-10 CODE: M85.9 DISORDER OF BONE DENSITY AND STRUCTURE,E55 .9 VITAMIN D Height: 61" Weight: 170lbs FRAX RISK QUESTIONS: Alcohol (3 or more units per day): No Family History (Parent hip fracture): No Glucocorticoids (More than 3mos): No (Ex: prednisone, prednisolone, methylprednisolone, dexamethasone, and hydrocortisone). History of Fracture in Adulthood: Yes, toe Secondary Osteoporosis: 1. Type 1 Diabetes: No 2. Hyperthyroidism: No 3. Menopause before 45: No 4. Malnutrition: No 5. Chronic liver disease: No Rheumatoid Arthritis: No Current Tobacco Use: No RISK FACTORS HISTORY OF: Hip Fracture (Right/Left): No Spine Fracture: No History of Wrist Fracture: No Surgery to Spine/Hip(right/left)/Wrist (right/left): No MEDICATIONS: Thyroid Medications: No Osteoporosis Medications: Yes EXAM MEASUREMENTS: Bone mineral densitometry was performed using the [employer] System. Bone mineral density as measured about the Lumbar spine is: ----- L1-L4(G/cm2): 1.053 T Score Values are as follows: ----- L1: -1.5 ----- L2: -0.8 ----- L3: -1.2 ----- L4: -0.9 ----- L1-L4: -1.1 Z Score Values are as follows: ----- L1: -0.6 ----- L2: 0.0 ----- L3: -0.4 ----- L4: -0.1 ----- L1-L4: -0.2 Bone mineral density has: increased 5.0% since study of: 02/14/2022 Bone mineral density about the R hip (g/cm2): 0.876 Bone mineral density about the L hip (g/cm2): 0.842 T Score values are as follows: -----R Neck: -1.8 -----L Neck: -2.0 -----R Total: -1.0 -----L Total: -1.3 Z Score values are as follows: -----R Neck: -0.8 -----L Neck: -1.0 -----R Total: -0.4 -----L Total: -0.6 Bone mineral density has: increased 10.4% since study of: 02/14/2022 FRAX%s: The graph provided illustrates a 9.4% chance for a major osteoporotic fx and a 1.2% chance fo r the hips probability for fx in 10 years time. IMPRESSION: Osteopenia (T Score between -2.5 and -1). There is slightly increased risk of fracture and the patient may be considered for treatment. Re-Screen 2-5 years. NOTE: T-SCORE=SD OF THE YOUNG ADULT MEAN. [facility], , 02/21/2024 10:16 AM
--- NOTE | 2024-02-21 13:49 | MM ---
Reason for Exam: Screening (asymptomatic). Last mammogram was performed 1 year(s) and 1 month(s) ago. Patient History: Menarche at age 11. First Full-Term at age 37. Late child-bearing (after 30). Postmenopausal. Patient has history of breast feeding. Hormonal Contraceptives for 6 months. Maternal grandmother had breast cancer at or over age 50. Risk Values: Bekah 5 year model risk: 2.0%. NCI Lifetime model risk: 10.0%. Prior Study Comparison: 01/18/2021 Bilateral Screening Mammogram, [facility]. 01/19/2022 Bilateral MG 3D screening mammo w/cad, [facility]. 02/02/2023 Bilateral MG screening mammo w CAD, [facility]. Tissue Density: The breasts are almost entirely fatty. Findings: Analyzed By CAD. Right breast: There is no suspicious group of microcalcifications or new suspicious mass. Left breast: There is no suspicious group of microcalcifications or new suspicious mass. Overall Assessment: Negative, BI-RAD 1 Management: Screening Mammogram of both breasts in [address] [facility] will attempt to contact patient to return for supplemental views and ultrasound if indicated. Patient should continue monthly self-breast exams. A clinical breast exam by your physician is recommended on an annual basis. This exam should not preclude additional follow-up of suspicious palpable abnormalities. Note on Bekah scores and lifetime risk: 1. A Bekah score greater than 3% is considered moderate risk. If this is the case, consider specialist referral to assess eligibility for a risk reducing agent. 2. If overall lifetime risk for the development of breast cancer is 20% or higher, the patient may qualify for future screening with alternating mammogram and breast MRI. [facility], , 02/21/2024 1:46 PM. Electronically signed and approved by: Nagi Carlin DO
== END | disposition home or self-care (01) ==
LOC: RADMAMWWP 07:43
PROVIDERS: ATTEND Family Medicine
DX: Z12.31 Encounter for screening mammogram for malignant neoplasm of breast (principal); M85.89 Other specified disorders of bone density and structure, multiple sites; E55.9 Vitamin D deficiency, unspecified; R92.313 Mammographic fatty tissue density, bilateral breasts; Z80.3 Family history of malignant neoplasm of breast; Z78.0 Asymptomatic menopausal state
CPT/HCPCS: 77067; 77080